=== PATIENT | female | born 1985 | race Caucasian/White ===

== ENCOUNTER 2023-11-24 11:55 | Outpatient (AMB) | payer OTHER, SELFPAY ==
--- NOTE | 2023-11-24 12:29 | MHC.OFFWIV ---
Intake Vital Signs 11/24/23 12:38 Height 5 ft 3 in Weight 188 lb BMI 33.3 BP 140/80 H Blood Pressure Location Lt brachial Position Sitting Pulse 84 Pulse Source Pulse Oximeter Temp 97.7 F Temp Source Temporal Artery Scan Pulse Oximetry (%) 98 Oxygen Delivery Method Room Air Intake Visit Reasons: [employer] rash lft arm/chest Intake Note: pt is here today for rash lf arm started 3 weeks ago Patient Tobacco Use Status: Never used Tobacco Allergies Penicillins Allergy (Mild, Verified 11/24/23 13:26) Unknown Medication List - Last Reconciled 11/24/23 by Ruy Obrien MD drospirenone-ethinyl estradiol 3-0.02 mg 1 tab PO DAILY metformin 500 mg PO BID phentermine 37.5 mg PO DAILY sertraline 100 mg PO DAILY Do you need a note to return to daycare/school/sports/work: No HPI [employer] rash lft arm/chest HPI Details 38-year-old female presents to the office for a sick visit. Patient has a developing rash, started in the left forearm, few lesions over her right breast and in the abdomen. Very itchy. She was working in the [employer] 2 weeks ago. [facility] Social History Patient Tobacco Use Status: Never used Tobacco Physical Exam Vital Signs: Last Vital Signs Temp 97.7 F 11/24/23 12:38 Pulse 84 11/24/23 12:38 BP 140/80 H 11/24/23 12:38 Pulse Ox 98 11/24/23 12:38 Oxygen Delivery Method Room Air 11/24/23 12:38 BMI result Body Mass Index 33.3 Skin Other: Erythematous vesicular rash on the left forearm, a few blisters on the right breast and the right side of the abdomen. Assessment & Plan Assessment & Plan (1) Contact dermatitis: Code(s): L25.9 - Unspecified contact dermatitis, unspecified cause Plan: Tapering dose of prednisone given. Calamine lotion to be applied. If symptoms not better to follow-up here. Coding Level of Care Code New Pt Level 3 (84316) Diagnoses Contact dermatitis L25.9
[2023-11-24 12:38] VITALS: BP 140/80; PULSE 84; TEMP 36.5; O2SAT 98; BMI 33.3
== END 2023-11-24 13:40 | disposition home or self-care (01) ==
PROVIDERS: Visit Provider Internal Medicine
DX: L25.9 Unspecified contact dermatitis, unspecified cause (principal)
CPT/HCPCS: 99203